=== PATIENT | male | born 2000 | race Two or more races ===

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

== ENCOUNTER 2024-12-11 15:24 | Emergency (ER) | payer OTHER ==
[~2024-12-11] VITALS: Ht 172.7 cm; Wt 53.0 kg
[2024-12-11 16:13] LABS: Basophils # (auto) 0.1 10 ^3/uL (0-0.2); Basophils % (auto) 1.3 % (0.0-2.0); Eosinophils # (auto) 0.2 10 ^3/uL (0-0.8); Eosinophils % (auto) 3.7 % (0.0-7.0); Hematocrit 46.9 % (41.0-53.0); Hemoglobin 16.1 g/dL (13.5-17.5); Lymphocytes # (auto) 1.1 10 ^3/uL (0.4-5.4); Lymphocytes % (auto) 24.9 % (10.0-50.0); Mean Corpuscular Hemoglobin 29.9 pg (28.0-32.0); Mean Corpuscular Hgb Conc. 34.3 g/dL (32.0-36.0); Mean Corpuscular Volume 87.2 fL (80.0-100.0); Monocytes # (auto) 0.4 10 ^3/uL (0-1.3); Monocytes % (auto) 8.9 % (0.0-12.0); Neutrophils # (auto) 2.7 10 ^3/uL (1.6-8.6); Neutrophils % (auto) 61.2 % (37.0-80.0); Nucleated Red Blood Cells % 0.1 %; Platelet Count (auto) 348 10^3/uL (140-450); Red Blood Cells 5.38 10^6/uL (4.5-5.90); Red Cell Distribution Width 12.8 % (11.8-14.3); White Blood Cell 4.4 10^3/uL (4.4-10.8)
[2024-12-11 16:31] LABS: Albumin 4.7 g/dL (3.2-4.8); Anion Gap 12 (5-15); Aspartate Aminotransferase 32 U/L (13-40); BUN/Creatinine Ratio 7.5 (10.0-20.0); Blood Urea Nitrogen 9 mg/dL (9-23); Carbon Dioxide 26 mmol/L (20-31); Creatine Kinase IFCC 73 U/L (46-171); Magnesium 2.2 mg/dL (1.6-2.6); Potassium 4.5 mmol/L (3.5-5.1); Total Protein 7.2 g/dL (5.7-8.2)
[2024-12-11 16:32] LABS: Bilirubin, Total 0.4 mg/dL (0.2-1.0)
[2024-12-11 16:33] LABS: Alanine Aminotransferase 80 U/L (7-40); Alkaline Phosphatase 137 U/L (46-116); Calcium 10.8 mg/dL (8.7-10.4); Chloride 96 mmol/L (98-107); Sodium 134 mmol/L (136-145)
[2024-12-11 16:36] LABS: Glucose 461 mg/dL (74-106); Lactic Acid w/Reflex 3.9 mmol/L (0.4-2.0)
[2024-12-11] MEDS: SODIUM CHLORIDE 0.9% 1,000 ML IV ONE ×3 (16:49→19:00)
[2024-12-11] MEDS: ONDANSETRON HCL 4 MG/2 ML VIAL IV ONE (16:49)
--- NOTE | 2024-12-11 17:03 | ED.PDOC ---
GI ASSESSMENT HPI Comments 24y F who presents to the ED for chief complaint of nausea and vomiting - pt states he has been having nausea, vomiting with associated generalized malaise since earlier this AM - pt states his vomit is yellow but otherwise denies any associated bleeding - pt states he was out in the sun all day yesterday and having generalized malaise since - pt denies any associated abdominal pain or associated symptoms - pt has history of DM and states he is complaint with his DM meds Patient took some insulin this morning. Past Medical history: DM Past Surgical history: denies Medications: denies Allergies: denies Social History: denies ETOH, denies tobacco use, denies drug use HPI: Poor Historian. SOTO: N/V TACHY WEAK, DM, HEAT EXHAUSTION TACHY REVIEW OF SYSTEMS: CONSTITUTIONAL: Denies acute: fever, diaphoresis, chills, HEAD: Denies acute: headache, photophobia Eyes: Denies acute: Double vision, vision loss, eye pain, eye discharge. EARS: Denies acute: tinnitus, hearing loss, ear discharge, ear pain, THROAT: Denies acute: sore throat, swelling, difficulty swallowing , pain with swallowing, change in voice. NECK: Denies acute: neck pain, neck swelling, stiff neck. HEART: Denies acute : chest pain, palpitations, LUNGS: Denies acute: SOB, wheezing, cough, hemoptysis ABDOMEN: Denies acute: abdominal pain, , diarrhea, melena , hematemesis, hematochezia SKIN: Denies acute: rash, redness, lesions, itchiness. EXTREMITIES: Denies acute: calf pain, numbness, tingling, weakness, denies pain in extremity. Denies acute: Low back pain. Neuro: Denies acute: focal neurological deficit, motor or sensory focal neurological deficit, tremors, seizure like activity, confusion, dizziness, change in mental status, loss of bowel or bladder function, cauda equina like symptoms. : Denies acute: dysuria, hematuria, flank pain, increase in urinary frequency. PSYCH: Denies acute: hallucination, suicidal ideation, homicidal ideation. PHYSICAL EXAM: General: ---mild-----acute distress, awake and alert. Head: normocephalic, atraumatic. Neck: supple, trachea is midline, no swelling. Throat: Normal phonation. Eyes:, no erythema, no purulent discharge, no proptosis, no icterus. Heart: regular tachycardia, no significant murmur appreciated. Lungs: no apparent respiratory distress, Able to speak in full sentences. No wheezing, no rhonchi, no crackles. No stridors Clear to auscultation bilaterally. Abdomen: non tender to palpation, non distended, soft, no guarding, no rebound, + bowel sounds. Neuro: Awake, Alert, oriented to name, self, situation, follows commands GCS=15. Speech is normal. Skin: no petechia, no purpura, no cyanosis, non-pale, not jaundice. Lower extremities: --no - Pitting edema no deformity, no focal swelling, no calf TTP. Makes eye contact. moves all four extremities. Face: no apparent facial droop. Ambulating in the ED independently. No nuchal rigidity, Kernig's sign, Brudzinski's sign, no meningeal signs. ED COURSE: Chief Complaint: Nausea/Vomiting Time Seen by MD: 17:02 Primary Care Provider: JUAN A Reviewed Notes: Medications, Allergies Allergies: Coded Allergies: NO KNOWN ALLERGIES (Unverified , 01/08/11) Home Meds Active Scripts Nitrofurantoin Monohydrate Mac (Macrobid) 100 Mg Cap, 100 MG PO BID for 7 Days, #14 CAP Prov:MEENAKSHI BERG DO 12/11/24 Reported Medications [Novilin] No Conflict Check 01/08/11 Insulin Glargine (Lantus) 100 Units/Ml Vial 01/08/11 Information Source: Patient Mode of Arrival: Ambulatory Past Medical History PAST MEDICAL HISTORY: DM Surgical History: Denies all surgeries Family History Family History: Family hx of DM Social History Smoker: Non-Smoker Alcohol: Heavy Drugs: Denies Drug Use Lives In: Home Was a procedure done? Was a procedure done?: No GI differential Dx Differential Diagnosis: Other (Includes but not limited to thyroid disease, encephalopathy, electrolyte abnormality, sepsis, infection, intracranial pathology, drug adverse effects, arrhythmia, kidney insufficiency, ACS, CVA, malignancy, anemia, DKA, hyperosmolar state,) X-Ray, Labs, Meds, VS Vital Signs Date Time Temp Pulse Resp B/P (MAP) Pulse Ox O2 Delivery O2 Flow Rate FiO2 12/11/24 21:30 90 18 98 Room Air 12/11/24 21:30 99.0 90 18 125/75 (92) 98 99.0 12/11/24 17:01 110 18 114/76 (89) 96 12/11/24 17:01 Room Air* 0 21 12/11/24 15:48 98.1 110 16 136/99 (111) 100 98.1 Lab Test 12/11/24 20:41 12/11/24 19:17 12/11/24 18:35 12/11/24 18:04 Range/Units Lactic Acid Level 1.9 2.7 *H 0.4-2.0 mmol/L POC Glucose 202 H 70-106 mg/dl Urine Color Light-yellow Yellow Urine Clarity Clear Clear Urine pH 6.0 5.0-9.0 Urine Specific [place] 1.044 H 1.001-1.035 Urine Protein Negative Negative Urine Ketones 1+ H Negative Urine Blood Negative Negative /uL Urine Nitrite Negative Negative Urine Bilirubin Negative Negative Urine Urobilinogen Normal Negative mg/dL Urine Leukocyte Esterase Trace Negative /uL Urine RBC <1 0 - 3 /hpf Urine Microscopic WBC 11 H 0-3 /HPF Urine Squamous Epithelial Cells None seen <5 /hpf Urine Bacteria None seen None Seen /hpf Urine Glucose 4+ H Normal mg/dL Urine Opiates Screen Neg NEGATIVE Urine Fentanyl Screen Neg NEGATIVE Urine Barbiturates Screen Neg NEGATIVE Urine Phencyclidine Screen Neg NEGATIVE Urine Amphetamines Screen Neg NEGATIVE Urine Benzodiazepines Screen Neg NEGATIVE Urine Cocaine Screen Neg NEGATIVE Urine Cannabinoids Screen Neg NEGATIVE Beta-Hydroxybutyric Acid 0.377 < 0.4 mmol/L Test 12/11/24 15:45 12/11/24 15:43 Range/Units White Blood Count 4.4 4.4-10.8 10^3/uL Red Blood Count 5.38 4.5-5.90 10^6/uL Hemoglobin 16.1 13.5-17.5 g/dL Hematocrit 46.9 41.0-53.0 % Mean Corpuscular Volume 87.2 80.0-100.0 fL Mean Corpuscular Hemoglobin 29.9 28.0-32.0 pg Mean Corpuscular Hemoglobin Concent 34.3 32.0-36.0 g/dL Red Cell Distribution Width 12.8 11.8-14.3 % Platelet Count 348 140-450 10^3/uL Mean Platelet Volume 8.2 6.9-10.8 fL Neutrophils (%) (Auto) 61.2 37.0-80.0 % Lymphocytes (%) (Auto) 24.9 10.0-50.0 % Monocytes (%) (Auto) 8.9 0.0-12.0 % Eosinophils (%) (Auto) 3.7 0.0-7.0 % Basophils (%) (Auto) 1.3 0.0-2.0 % Neutrophils # (Auto) 2.7 1.6-8.6 10 ^3/uL Lymphocytes # (Auto) 1.1 0.4-5.4 10 ^3/uL Monocytes # (Auto) 0.4 0-1.3 10 ^3/uL Eosinophils # (Auto) 0.2 0-0.8 10 ^3/uL Basophils # (Auto) 0.1 0-0.2 10 ^3/uL Nucleated Red Blood Cells 0.1 % Sodium Level 134 L 136-145 mmol/L Potassium Level 4.5 3.5-5.1 mmol/L Chloride Level 96 L 98-107 mmol/L Carbon Dioxide Level 26 20-31 mmol/L Anion Gap 12 5-15 Blood Urea Nitrogen 9 9-23 mg/dL Creatinine 1.20 0.700-1.30 mg/dL Glomerular Filtration Rate Calc 87 >90 mL/min BUN/Creatinine Ratio 7.5 L 10.0-20.0 Serum Glucose 461 *H 74-106 mg/dL Lactic Acid Level 3.9 *H 0.4-2.0 mmol/L Calcium Level 10.8 H 8.7-10.4 mg/dL Magnesium Level 2.2 1.6-2.6 mg/dL Total Bilirubin 0.4 0.2-1.0 mg/dL Aspartate Amino Transferase (AST) 32 13-40 U/L Alanine Aminotransferase (ALT) 80 H 7-40 U/L Alkaline Phosphatase 137 H 46-116 U/L Creatine Kinase 73 46-171 U/L Troponin I High Sensitivity < 3 L </=54 ng/L Total Protein 7.2 5.7-8.2 g/dL Albumin 4.7 3.2-4.8 g/dL Beta-Hydroxybutyric Acid 0.931 H < 0.4 mmol/L POC Glucose 461 *H 70-106 mg/dl Time of 1ST Reevaluation: 17:56 Reevaluation 1ST: Resolved Time of 2ND Reevaluation: 18:54 (As of now, urinalysis is still pending) Patient Education/Counseling: Diagnosis, Treatment Family Education/Counseling: No Family Present Comments Patient presented with the above HPI.-nausea and vomiting a diabetic patient-----workup was initiated. patient was found with the above mentioned diagnosis. the following medications were ordered: please refer to order lists of meds and tests obtained by myself Dr. Berg. Patient ED course and VS have been stabilized. Patient has been reassessed in the ED and remained in a stable condition. Pertinent incidental findings were discussed with the patient and/or family. Patient/family voices understanding and is agreeable with plan. Patient has been observed in the ED adequate length of time to insure improvement/stability. Escalation of care considered: Consideration of escalation to observation or admission Patient was given multiple fluid boluses. Patient was given antibiotics. The patient lactic acid elevation resolved. Patient was found with UTI. Patient was DISCHARGED home in a stable condition. All the reports of any imaging studies that were ordered by myself were reviewed by myself. Departure 1 Departure Time of Disposition: 17:56 Impression: Primary Impression: Nausea and vomiting Additional Impressions: Dehydration Hyperglycemia due to diabetes mellitus UTI (urinary tract infection) Disposition: 01 HOME / SELF CARE / HOMELESS Condition: Stable Additional Instructions: Additional instructions: You MUST follow-up with your primary care/family doctor in 1 to 2 days. If you are unable to see your primary care/family doctor, please return to our emergency room for re-assessment and re-evaluation in 1 to 2 days. Return to the emergency room here in our facility or to the nearest ER [facility] if your symptoms change or worsen. CONSULTATIONS: you MUST Follow-up for consultation as soon as possible with: Dr. vidales for better control of your diabetes. You MUST call the consultants office yourself to make an appointment. You may need to arrange that through your insurance and/or your primary/family doctor. If you are unable to see the remediation consultant in 1 to 2 days, you must return to our emergency room (or any other ER of your choice) for re-assessment and re- evaluation. Adequate fluid hydration. e-Prescriptions Nitrofurantoin Monohydrate Mac (Macrobid) 100 Mg Cap 100 MG PO BID for 7 Days, #14 CAP Prov: MEENAKSHI BERG DO 12/11/24 Discharged With: Self Critical Care Note Critical Care Time?: Yes (35 min-critical care time only) I personally scribed for MEENAKSHI BERG DO ([email or web address]) on 12/11/24 at 17:03. Electronically submitted by Cong Brady ([email or web address]). MEENAKSHI BERG DO Dec 11, 2024 17:03
[2024-12-11 19:54] LABS: Urine Bacteria None Seen /hpf (None Seen)
[2024-12-11 20:12] LABS: Urine Blood Negative /uL (Negative); Urine Clarity Clear (Clear); Urine Color Light-Yellow (Yellow); Urine Protein, UAD Negative (Negative); Urine Specific Gravity 1.044 (1.001-1.035); Urine Squamous Epithelial Cell None Seen /hpf (<5); Urine Urobilinogen Normal (Negative); Urine WBC 11 /HPF (0-3)
[2024-12-11 20:22] LABS: Amphetamine Screen, Urine Neg (NEGATIVE); Barbiturate Scree,Urine Neg (NEGATIVE); Benzodiazephine Screen, Urine Neg (NEGATIVE); Cannabinoid Screen, Urine Neg (NEGATIVE); Cocaine Screen, Urine Neg (NEGATIVE); Opiate Scree,Urine Neg (NEGATIVE); Phencyclidine Screen, Urine Neg (NEGATIVE)
[2024-12-11] MEDS ORDERED: NITR-87 PO (20:36)
[2024-12-11 21:30] VITALS: BP 125/75; PULSE 90; RESP 18; TEMP 99; O2SAT 98
== END 2024-12-11 21:32 | disposition home or self-care (01) ==
LOC: ER 15:39
DX: E11.65 Type 2 diabetes mellitus with hyperglycemia (principal); N39.0 Urinary tract infection, site not specified; E86.0 Dehydration; R11.2 Nausea with vomiting, unspecified; Z79.899 Other long term (current) drug therapy
CPT/HCPCS: 36415; 80053; 80307; 81001; 82010; 82550; 82947; 83605; 83735; 84484; 85025; 96361; 96374; 99283; J2405; J7030; 82962; 99291

== ENCOUNTER 2025-06-05 07:12 | Inpatient (IN) | payer OTHER ==
[~2025-06-05] VITALS: Ht 172.7 cm; Wt 57.0 kg
[~2025-06-05 07:12] MED LIST changes: +NITR-87 PO
--- NOTE | 2025-06-05 07:36 | ED.PDOC ---
GI ASSESSMENT HPI Comments This is a 24 year old male presenting to the ED with chief complaint of N/V. Patient reports that he has been experiencing nausea, vomiting, and epigastric abdominal pain since 11pm last night. Patient relays that he had went to dinner for his aunt last night prior to symptom onset. Patient denies any diarrhea, fever, chills, dizziness, or chest pain. Chief Complaint: Nausea/Vomiting Time Seen by MD: 07:35 Primary Care Provider: JUAN A Reviewed Notes: Nurses Notes, Medications, Allergies Allergies: Coded Allergies: NO KNOWN ALLERGIES (Unverified , 01/08/11) Home Meds Active Scripts Nitrofurantoin Monohydrate Mac (Macrobid) 100 Mg Cap, 100 MG PO BID for 7 Days, #14 CAP Prov:MEENAKSHI BERG DO 12/11/24 Reported Medications [Novilin] No Conflict Check 01/08/11 Insulin Glargine (Lantus) 100 Units/Ml Vial 01/08/11 Information Source: Patient Mode of Arrival: Ambulatory Timing: Hours Duration: Since onset Prehospital treatment: None Quality: Aching Vomitus: Watery Stool: Normal Severity: Moderate Recent: None Recent Hx of: None Pain Location: Epigastric Modifying Factors: Nothing Associated sign and symptoms: Nausea, Vomiting, Abdominal Pain Past Medical History PAST MEDICAL HISTORY: DM Surgical History: Denies all surgeries Family History Family History: Reviewed,noncontributory to illness, Family hx of DM Social History Smoker: Non-Smoker Alcohol: Heavy, Sober Drugs: Denies Drug Use Lives In: Home Constitutional: denies: chills, diaphoresis, fatigue, fever, malaise, sweats, weakness, others EENTM: denies: blurred vision, double vision, ear bleeding, ear discharge, ear drainage, ear pain, ear ringing, eye pain, eye redness, hearing loss, mouth pain , mouth swelling, nasal discharge, nose bleeding, nose congestion, nose pain, photophobia, tearing, throat pain, throat swelling, voice changes, others Respiratory: denies: cough, hemoptysis, orthopnea, SOB at rest, shortness of breath, SOB with excertion, stridor, wheezing, others Cardiovascular: denies: chest pain, dizzy spells, diaphoresis, Dyspnea on exertion, edema, irregular heart beat, left arm pain, lightheadedness, palpitations, PND, syncope, others Gastrointestinal: reports: abdominal pain, nausea, vomiting; denies: abdomen distended, blood streaked bowels, constipated, diarrhea, dysphagia, difficulty swallowing, hematemesis, melena, poor appetite, poor fluid intake, rectal bleeding, rectal pain, others Genitourinary: denies: burning, dysuria, flank pain, frequency, hematuria, incontinence, penile discharge, penile sore, pain, testicle pain, testicle swelling, urgency, others Neurological: denies: dizziness, fainting, headache, left sided numbness, left sided weakness, numbness, paresthesia, pre-existing deficit, right sided numbness, right sided weakness, seizure, speech problems, tingling, tremors, weakness, others Musculoskeletal: denies: back pain, gout, joint pain, joint swelling, muscle pain, muscle stiffness, neck pain, others Integumetry: denies: bruises, change in color, change in hair/nails, dryness, laceration, lesions, lumps, rash, wounds, others Allergic/Immunocompromised: denies: Difficulty Healing, Frequent Infections, Hives, Itching, others Hematologic/Lymphatic: denies: anemia, blood clots, easy bleeding, easy bruising, swollen glands, others Endocrine: denies: excessive hunger, excessive sweating, excessive thirst, excessive urination, flushing, intolerance to cold, intolerance to heat, unexplained weight gain, unexplained weight loss, others Psychiatric: denies: anxiety, bipolar disorder, depression, hopeless, panic disorder, schizophrenia, sleepless, suicidal, others Physical Exam General Appearance: Moderate Distress, Normal HEENT: Normal ENT Inspection, Pharynx Normal, TMs Normal Neck: Full Range of Motion, Non-Tender, Normal, Normal Inspection Respiratory: Chest Non-Tender, Lungs Clear, No Accessory Muscle Use, No Respiratory Distress, Normal Breath Sounds Cardiovascular: No Edema, No JVD, No Murmur, No Gallop, Normal Peripheral Pulses, Regular Rate/Rhythm Breast Exam: Deferred Gastrointestinal: No Organomegaly, Non Tender, No Pulsatile Mass, Normal Bowel Sounds, Soft Genitalia: Deferred Pelvic: Deferred Rectal: Deferred Extremities: No calf tenderness, Normal capillary refill, Normal inspection, Normal range of motion, Non-tender, No pedal edema Musculoskeletal : Apperance: Normal Neurologic: Alert, rent and miscellaneous remittance clerk II-XII nml as Tested, No Motor Deficits, Normal Affect, Normal Mood, No Sensory Deficits Cerebellar Function: Normal Reflexes: Normal Skin: Dry, Normal Color, Warm Peripheral Pulses: 3+ Radial (R), 3+ Radial (L) Lymphatic: No Adenopathy Was a procedure done? Was a procedure done?: No GI differential Dx Differential Diagnosis: Constipation, Diverticular disease, Esophagitis, Gastritis/PUD, Gastroenteritis, Electrolyte Imbalance, Food Poisoning, Bacterial, Viral X-Ray, Labs, Meds, VS Vital Signs Date Time Temp Pulse Resp B/P (MAP) Pulse Ox O2 Delivery O2 Flow Rate FiO2 06/05/25 07:14 97.3 121 18 112/77 98 97.3 Lab Test 06/05/25 07:43 Range/Units White Blood Count 6.0 4.4-10.8 10^3/uL Red Blood Count 5.24 4.5-5.90 10^6/uL Hemoglobin 15.6 13.5-17.5 g/dL Hematocrit 47.7 41.0-53.0 % Mean Corpuscular Volume 91.0 80.0-100.0 fL Mean Corpuscular Hemoglobin 29.8 28.0-32.0 pg Mean Corpuscular Hemoglobin Concent 32.7 32.0-36.0 g/dL Red Cell Distribution Width 12.8 11.8-14.3 % Platelet Count 443 140-450 10^3/uL Mean Platelet Volume 8.6 6.9-10.8 fL Neutrophils (%) (Auto) 65.3 37.0-80.0 % Lymphocytes (%) (Auto) 22.2 10.0-50.0 % Monocytes (%) (Auto) 7.2 0.0-12.0 % Eosinophils (%) (Auto) 4.3 0.0-7.0 % Basophils (%) (Auto) 1.0 0.0-2.0 % Neutrophils # (Auto) 3.9 1.6-8.6 10 ^3/uL Lymphocytes # (Auto) 1.3 0.4-5.4 10 ^3/uL Monocytes # (Auto) 0.4 0-1.3 10 ^3/uL Eosinophils # (Auto) 0.3 0-0.8 10 ^3/uL Basophils # (Auto) 0.1 0-0.2 10 ^3/uL Nucleated Red Blood Cells 0.1 % Sodium Level 129 L 136-145 mmol/L Potassium Level 4.4 3.5-5.1 mmol/L Chloride Level 91 L 98-107 mmol/L Carbon Dioxide Level 21 20-31 mmol/L Anion Gap 17 H 5-15 Blood Urea Nitrogen 11 9-23 mg/dL Creatinine 1.42 H 0.700-1.30 mg/dL Glomerular Filtration Rate Calc 71 >90 mL/min BUN/Creatinine Ratio 7.7 L 10.0-20.0 Serum Glucose 663 *H 74-106 mg/dL Calcium Level 9.7 8.7-10.4 mg/dL Patient alert. Came in because of nausea vomiting. Vitals stable. Answering questions. Abdomen is soft nontender. Ambulating. WBC within normal limits. Hemoglobin within normal limits. No leg swelling. No shortness a breath. Establish intravenous access. Was given fluids. Was given Zofran. Blood sugar elevated. Started insulin drip. Explained to the patient. Time of 1ST Reevaluation: 08:26 Reevaluation 1ST: Unchanged Patient Education/Counseling: Diagnosis, Treatment Family Education/Counseling: No Family Present SEPSIS Sepsis Screen Date sepsis recognized/suspect: Jun 05, 2025 Time Sepsis recognized/suspect: 718 Recent Procedure: No On Antibiotic Therapy: No Respiratory Rate >20: No Heart Rate >90: Yes Temp<36 C (96.8 F) or >38.3 C: No SBP <90 or MAP <65 mmHG: No New Acute Mental Status Change: No Is the patient on CPAP, BIPAP,: No Vital Signs Date Time Temp Pulse Resp B/P (MAP) Pulse Ox O2 Delivery O2 Flow Rate FiO2 06/05/25 07:14 97.3 121 18 112/77 98 97.3 Laboratory Tests Test 06/05/25 07:43 White Blood Count 6.0 10^3/uL (4.4-10.8) Departure 1 Departure Time of Disposition: 08:28 Impression: Primary Impression: Uncontrolled diabetes mellitus Qualified Codes: E13.65 - Other specified diabetes mellitus with hyperglycemia Additional Impressions: Gastroenteritis Dehydration Disposition: ADMITTED INPATIENT Admit to: Med Surg Condition: Guarded Critical Care Note Critical Care Time?: No Stability Stability form required: No Heart Score Heart Score: Heart Score Response (Comments) Value History N/A 0 EKG N/A 0 Age N/A 0 Risk Factors N/A 0 Troponin N/A 0 Total 0 I personally scribed for SOWMYA GAMING MD ([email or web address]) on 06/05/25 at 07:36. Electronically submitted by Mayito Park ([email or web address]). SOWMYA GAMING MD Jun 05, 2025 07:36
[2025-06-05 08:11] LABS: Hematocrit 47.7 % (41.0-53.0); Hemoglobin 15.6 g/dL (13.5-17.5); Mean Corpuscular Hemoglobin 29.8 pg (28.0-32.0); Mean Corpuscular Volume 91.0 fL (80.0-100.0); Nucleated Red Blood Cells % 0.1 %
[2025-06-05 08:14] LABS: Potassium 4.4 mmol/L (3.5-5.1)
[2025-06-05 08:15] LABS: Anion Gap 17 (5-15); Carbon Dioxide 21 mmol/L (20-31)
[2025-06-05 08:16] LABS: Calcium 9.7 mg/dL (8.7-10.4)
[2025-06-05 08:20] LABS: BUN/Creatinine Ratio 7.7 (10.0-20.0); Blood Urea Nitrogen 11 mg/dL (9-23)
[2025-06-05 08:41] LABS: Chloride 91 mmol/L (98-107); Sodium 129 mmol/L (136-145)
[2025-06-05 08:43] LABS: Glucose 663 mg/dL (74-106)
[2025-06-05] MEDS: ACCU-CHEK COMFORT CURVE STRIP VI SCH ×2 (09:00→15:47)
[2025-06-05] MEDS ORDERED: DEXTROSE (50%) 50ML SYRG IV PRN ×2 (09:00→13:00)
[2025-06-05] MEDS ORDERED: INSULIN DRIP 100 UNIT/100ML 100 ML IV SCH (09:00)
[2025-06-05] MEDS: ONDANSETRON HCL 4 MG/2 ML VIAL IV ONE (09:16)
[2025-06-05] MEDS: SODIUM CHLORIDE 0.9% 1,000 ML IV ONE (09:16)
[2025-06-05 09:20] VITALS: PULSE 86; RESP 12; O2SAT 99
[2025-06-05] MEDS: INSULIN LANTUS (GLARGINE) 1 /0.01ml (100units/ml) SC ONE (09:35)
[2025-06-05] MEDS ORDERED: ONDANSETRON HCL 4 MG/2 ML VIAL IV PRN (10:00)
[2025-06-05] MEDS ORDERED: ACETAMINOPHEN 325 MG TAB PO PRN (10:00)
[2025-06-05] MEDS ORDERED: DOCUSATE SOD 100 MG CAP PO PRN (10:00)
[2025-06-05] MEDS ORDERED: HYDROcodone-ACET 5/325MG TAB PO PRN (10:00)
--- NOTE | 2025-06-05 10:19 | DVHHP2 ---
History of Present Illness Reason for Visit: Diabetes mellitus with ketoacidosis History of Present Illness The patient is a 24-year-old male with past medical history of diabetes mellitus who presented to [facility] ED with complaint of nausea and vomiting. Patient reports that he has been experiencing intractable nausea, vomiting, associated epigastric abdominal pain, generalized weakness, getting worse that prompted this visit. Patient was seen and evaluated in the ED, laboratory data shows WBC 6.0, platelets 443, sodium 123, potassium 4.4, BUN 11, creatinine 1.42, GFR 71, glucose 663, anion gap 17, calcium 9.7, blood pressure 103/73, heart rate 86, temperature 99.2 F, O2 saturation 99% on room air. Please see medication orders section in the computer. On my assessment, patient denied chest pain, no headache, dizziness, diaphoresis, shortness of breaths, no diarrhea, nausea, vomiting, fever, no chills. Patient was admitted for further evaluation and medical management. Past Medical History DM Past Surgical History Denies all surgeries Family History Reviewed, noncontributory to the management of this case. Past Social History The patient lives at home, denies smoking, drinks alcohol heavily, sober, denies illicit drugs abuse. Review of Systems Constitutional: Yes: Weakness; No: Fever, Chills, Sweats, Malaise, Other Eyes: No: Pain, Vision change, Conjunctivae inflammation, Eyelid inflammation, Other, Redness ENT: No: Ear pain, Ear discharge, Nose pain, Nose discharge, Nose congestion, Mouth pain, Mouth swelling, Throat pain, Throat swelling, Other Respiratory: No: Cough, Dry, Shortness of breath, SOB with excertion, Wheezing, Hemoptysis, Pleuritic Pain, Sputum, Wheezing, Other Cardiovascular: No: Chest Pain, Palpitations, Orthopnea, Paroxysmal Noc. Dyspnea, Edema, Lt Headedness, Other Gastrointestinal: No: Nausea, Vomiting, Abdominal Pain, Diarrhea, Constipation, Melena, Hematochezia, Other Genitourinary: No Dysuria, No Frequency, No Incontinence, No Hematuria, No Retention, No Other Musculoskeletal: No: other, neck pain, shoulder pain, arm pain, back pain, hand pain, leg pain, foot pain Skin: No: Rash, Lesions, Jaundice, Bruising, Other Neurological: No: Weakness, Numbness, Incoordination, Change in speech, Confusion, Seizures, Other Allergies: Coded Allergies: NO KNOWN ALLERGIES (Unverified , 01/08/11) Medications Current Medications Medications Dose Ordered Sig/Leigh Route Start Time Stop Time Status Last Admin Dose Admin Insulin Human (Reg)/Sodium Chloride 100 ml @ 0.5 mls/hr Q24H IV 06/05/25 09:00 Diagnostic Test (Pha) 1 strip Q90MIN 06/05/25 09:00 Dextrose 50 ml PRN PRN IV 06/05/25 09:00 Insulin Glargine 15 units DAILY SC 06/06/25 10:00 Sodium Chloride 1,000 ml @ 120 mls/hr Q8H20M IV 06/05/25 10:00 Acetaminophen/ Hydrocodone Bitart 1 tab Q4HP PRN PO 06/05/25 10:00 Ondansetron HCl 4 mg Q4HP PRN IV 06/05/25 10:00 Docusate Sodium 100 mg BIDPRN PRN PO 06/05/25 10:00 Acetaminophen 650 mg Q6HP PRN PO 06/05/25 10:00 Exam Vital Signs Vital Signs Date Time Temp Pulse Resp B/P (MAP) Pulse Ox O2 Delivery O2 Flow Rate FiO2 06/05/25 10:13 85 12 113/83 (93) 99 06/05/25 09:20 Room Air* 0 21 06/05/25 09:05 99.2 99.2 General Appearance: Alert, Oriented X3, Cooperative, No acute distress HEENT: Atraumatic, PERRLA, EOMI, Mucous membr. moist/pink Respiratory: Normal air movement Cardiovascular: Regular rate, Normal S1, Normal S2, No murmurs Abdominal: Normal bowel sounds, Soft, No tenderness, No hepatospenomegaly, No masses Extremities: No clubbing, No cyanosis, No edema, Normal pulses, No tenderness/swelling Skin: No rashes, No significant lesion Neuro: Normal speech, Normal tone, Sensation intact, Cranial nerves 3-12 NL, Reflexes 2+, Other (Generalized weakness) Psych/Mental Status: Mental status NL, Mood NL Labs/Xrays Labs Test 06/05/25 09:07 06/05/25 07:43 Range/Units POC Glucose 500 *H 70-106 mg/dl White Blood Count 6.0 4.4-10.8 10^3/uL Red Blood Count 5.24 4.5-5.90 10^6/uL Hemoglobin 15.6 13.5-17.5 g/dL Hematocrit 47.7 41.0-53.0 % Mean Corpuscular Volume 91.0 80.0-100.0 fL Mean Corpuscular Hemoglobin 29.8 28.0-32.0 pg Mean Corpuscular Hemoglobin Concent 32.7 32.0-36.0 g/dL Red Cell Distribution Width 12.8 11.8-14.3 % Platelet Count 443 140-450 10^3/uL Mean Platelet Volume 8.6 6.9-10.8 fL Neutrophils (%) (Auto) 65.3 37.0-80.0 % Lymphocytes (%) (Auto) 22.2 10.0-50.0 % Monocytes (%) (Auto) 7.2 0.0-12.0 % Eosinophils (%) (Auto) 4.3 0.0-7.0 % Basophils (%) (Auto) 1.0 0.0-2.0 % Neutrophils # (Auto) 3.9 1.6-8.6 10 ^3/uL Lymphocytes # (Auto) 1.3 0.4-5.4 10 ^3/uL Monocytes # (Auto) 0.4 0-1.3 10 ^3/uL Eosinophils # (Auto) 0.3 0-0.8 10 ^3/uL Basophils # (Auto) 0.1 0-0.2 10 ^3/uL Nucleated Red Blood Cells 0.1 % Sodium Level 129 L 136-145 mmol/L Potassium Level 4.4 3.5-5.1 mmol/L Chloride Level 91 L 98-107 mmol/L Carbon Dioxide Level 21 20-31 mmol/L Anion Gap 17 H 5-15 Blood Urea Nitrogen 11 9-23 mg/dL Creatinine 1.42 H 0.700-1.30 mg/dL Glomerular Filtration Rate Calc 71 >90 mL/min BUN/Creatinine Ratio 7.7 L 10.0-20.0 Serum Glucose 663 *H 74-106 mg/dL Calcium Level 9.7 8.7-10.4 mg/dL SEPSIS Sepsis Screen Date sepsis recognized/suspect: Jun 05, 2025 Time Sepsis recognized/suspect: 943 Recent Procedure: No On Antibiotic Therapy: No Respiratory Rate >20: No Heart Rate >90: No Temp<36 C (96.8 F) or >38.3 C: No SBP <90 or MAP <65 mmHG: No New Acute Mental Status Change: No Is the patient on CPAP, BIPAP,: No Physician Orders Insulin Drip 100 Unit/100ml (Myxredlin 1 (06/05/25 09:00) Glucose Blood (Accu-Chek Comfort Curve T (06/05/25 09:00) D/C All Diabetic Medications (06/05/25 08:50) Insulin Drip Protocol (06/05/25 08:50) Dextrose 50% Syringe (06/05/25 09:00) Insulin Lantus (Glargine) (Lantus) (06/06/25 10:00) Consistent Carb(Ccho)Diabetes (06/05/25 Lunch) Allergies (06/05/25 09:54) Code Status (06/05/25 09:54) Sodium Chloride 0.9% (06/05/25 10:00) Oxygen Per Hour (06/05/25 09:54) Hydrocodone-Acet 5/325mg Tab (Campus 5/32 (06/05/25 10:00) Ondansetron Hcl (Zofran) (06/05/25 10:00) Docusate Sodium Capsule (Colace Capsule) (06/05/25 10:00) Fall Risk Precautions In Place QSHIFT (06/05/25 09:54) Complete Blood Count (06/06/25 04:00) Comprehensive Metabolic Panel (06/06/25 04:00) Condition: Serious (06/05/25 09:54) Acetaminophen Tablet (Tylenol Tablet) (06/05/25 10:00) Maintain Bed Rest (06/05/25 09:54) Sequential Compression Device (06/05/25 ) Acetone, Urine (06/05/25 09:54) Admit (06/05/25 10:18) Nitroglycerin Sublingual (Ntrostat Subli (06/05/25 10:30) Morphine Sulfate Injection (06/05/25 10:30) Stat Ekg For Chest Pain (06/05/25 10:18) Notify Md Of Changes From Base (06/05/25 10:18) Sliver Lap Tender For 24 Hours (06/05/25 10:18) Emergency Dysrhythmia Protocol (06/05/25 10:18) Rhythm Strips Once Every Shift (06/05/25 10:18) Oxygen By Nasal Cannula (06/05/25 10:18) Vital Signs Date Time Temp Pulse Resp B/P (MAP) Pulse Ox O2 Delivery O2 Flow Rate FiO2 06/05/25 10:13 85 12 113/83 (93) 99 06/05/25 09:20 86 12 99 Room Air* 0 21 06/05/25 09:05 99.2 86 12 103/73 (83) 99 99.2 06/05/25 07:14 97.3 121 18 112/77 98 97.3 Laboratory Tests Test 06/05/25 07:43 White Blood Count 6.0 10^3/uL (4.4-10.8) Medications Medications Dose Ordered Sig/Leigh Route Start Time Stop Time Status Last Admin Dose Admin Insulin Glargine 15 units ONCE ONCE SC 06/05/25 09:00 06/05/25 09:01 DC 06/05/25 09:35 15 UNITS Ondansetron HCl 4 mg ONCE ONCE IV 06/05/25 07:45 06/05/25 07:46 DC 06/05/25 09:16 4 MG Sodium Chloride 1,000 ml @ 1,000 mls/hr Q1H ONCE IV 06/05/25 07:45 06/05/25 08:44 DC 06/05/25 09:16 1,000 MLS/HR Assessment/Plan Assessment/Plan Uncontrolled diabetes mellitus Gastroenteritis Dehydration Diabetes mellitus with ketoacidosis Hyperglycemia due to diabetes mellitus Other specified diabetes mellitus with hyperglycemia Plan 1. Admit to intensive care unit 2. Breathing treatment 3. Pain control management 4. Management of fluids and electrolytes 5. Consultation for hospitalist 6. Diagnostic tests chest x-ray 7. DVT prophylaxis on SCDs 8. Repeat labs CBC, CMP in a.m. 9. Continue with current medical management 10. Treatment plan discussed with patient and RN. Patient verbalized understanding. Plan discussed with: Patient, Other (RN) My Orders Orders - BILL KHAN DNP Procedure Category Date Status Time Consistent DIET 06/05/25 Transmitted Carb(Ccho)Diabetes Lunch Allergies ALIYA 06/05/25 In Process 09:54 Code Status CODE 06/05/25 Transmitted 09:54 Sodium Chloride 0.9% PHA 06/05/25 In Process 10:00 Oxygen Per Hour RT 06/05/25 Transmitted 09:54 Hydrocodone-Acet PHA 06/05/25 In Process 5/325mg Tab (Campus 10:00 Ondansetron Hcl PHA 06/05/25 In Process (Zofran) 10:00 Docusate Sodium PHA 06/05/25 In Process Capsule (Colace 10:00 Fall Risk Precautions ALIYA 06/05/[address] 09:54 Complete Blood Count LAB 06/06/25 Verified 04:00 Comprehensive LAB 06/06/25 Verified Metabolic Panel 04:00 Condition: Serious ALIYA 06/05/25 In Process 09:54 Acetaminophen Tablet PHA 06/05/25 In Process (Tylenol Tablet) 10:00 Maintain Bed Rest ALIYA 06/05/25 In Process 09:54 Sequential ALIYA 06/05/25 In Process Compression Device Acetone, Urine LAB 06/05/25 Logged 09:54 Admit ADMIT 06/05/25 Verified 10:18 Nitroglycerin PHA 06/05/25 Verified Sublingual (Ntrostat 10:30 Morphine Sulfate PHA 06/05/25 Verified Injection 10:30 Stat Ekg For Chest [facility] 06/05/25 Verified Pain 10:18 Notify Md Of Changes [facility] 06/05/25 Verified From Base 10:18 Sliver Lap Tender For [facility] 06/05/25 Verified 24 Hours 10:18 Emergency Dysrhythmia [facility] 06/05/25 Verified Protocol 10:18 Rhythm Strips Once [facility] 06/05/25 Verified Every Shift 10:18 Oxygen By Nasal RT 06/05/25 Verified Cannula 10:18 Problem List: (1) Uncontrolled diabetes mellitus (2) Gastroenteritis (3) Dehydration (4) Diabetes mellitus with ketoacidosis (5) Hyperglycemia due to diabetes mellitus (6) Other specified diabetes mellitus with hyperglycemia Date of Service: Jun 05, 2025 Billing Provider: BILL KHAN DNP Common Visit Codes: [id number] INP/OBS CARE (HIGH) BILL KHAN DNP Jun 05, 2025 10:19
[2025-06-05] MEDS ORDERED: MORPHINE SULFATE INJ 2 MG/ml SYRG IV PRN (10:30)
[2025-06-05] MEDS ORDERED: NITROGLYCERIN 0.4 MG SL TAB SL PRN (10:30)
[2025-06-05] MEDS: SODIUM CHLORIDE 0.9% 1,000 ML IV SCH (10:47)
[2025-06-05 12:11] LABS: Chloride 101 mmol/L (98-107); Potassium 4.5 mmol/L (3.5-5.1)
[2025-06-05 12:12] LABS: Anion Gap 13 (5-15); Calcium 8.8 mg/dL (8.7-10.4); Carbon Dioxide 21 mmol/L (20-31)
[2025-06-05 12:17] LABS: BUN/Creatinine Ratio 8.5 (10.0-20.0)
[2025-06-05 12:20] LABS: Blood Urea Nitrogen 8 mg/dL (9-23); Glucose 357 mg/dL (74-106); Sodium 135 mmol/L (136-145)
--- NOTE | 2025-06-05 13:11 | DVH ---
EXAM: XY CHEST PORTABLE Indication: Dizziness Technique: Single frontal view of the chest was obtained Comparison: None FINDINGS: Lines and Tubes: None Lungs: No focal consolidation. Pleura: No effusion. No pneumothorax. Cardiomediastinal contours: Unremarkable Bones: No acute osseous abnormality. IMPRESSION: No acute cardiopulmonary disease.
[2025-06-05 15:27] VITALS: RESP 12
[2025-06-05] MEDS: InsuLIN REG 1unit/0.01ml Soln (100units/ml) SC SCH (15:46)
[2025-06-05] MEDS ORDERED: INSU1INJ19 SC (15:49)
[2025-06-05] MEDS ORDERED: INSUINJ37 SC (15:49)
[2025-06-05] MEDS ORDERED: INSU100I51 (15:49)
[2025-06-05 16:31] VITALS: BP 111/76; PULSE 86; RESP 18; TEMP 97.7; O2SAT 99
[2025-06-05 20:00] VITALS: PULSE 72; PULSE 73; PULSE 92; RESP 16
[2025-06-05 21:00] VITALS: BP 107/70; PULSE 96; RESP 15; TEMP 98.2; O2SAT 97
[2025-06-06] VITALS (8 sets, daily range): BP systolic 100–122; BP diastolic 62–96; PULSE 70–88; RESP 12–20; TEMP 97.8–98.7; O2SAT 97–99
[2025-06-06 03:23] LABS: Hematocrit 38.8 % (41.0-53.0); Hemoglobin 13.3 g/dL (13.5-17.5); Mean Corpuscular Hemoglobin 29.8 pg (28.0-32.0); Mean Corpuscular Volume 87.0 fL (80.0-100.0); Nucleated Red Blood Cells % 0.1 %
[2025-06-06 03:37] LABS: Albumin 3.3 g/dL (3.2-4.8); Alkaline Phosphatase 112 U/L (46-116); Anion Gap 11 (5-15); BUN/Creatinine Ratio 11.4 (10.0-20.0); Carbon Dioxide 26 mmol/L (20-31); Chloride 106 mmol/L (98-107); Glucose 88 mg/dL (74-106); Sodium 143 mmol/L (136-145)
[2025-06-06 03:38] LABS: Bilirubin, Total 0.4 mg/dL (0.2-1.0)
[2025-06-06 04:20] LABS: Alanine Aminotransferase 86 U/L (7-40); Blood Urea Nitrogen 8 mg/dL (9-23); Calcium 8.3 mg/dL (8.7-10.4); Potassium 3.2 mmol/L (3.5-5.1); Total Protein 5.6 g/dL (5.7-8.2)
[2025-06-06] MEDS ORDERED: INSULIN LANTUS (GLARGINE) 1 /0.01ml (100units/ml) SC SCH (10:00)
--- NOTE | 2025-06-06 17:43 | DVHPN2 ---
Reviewed: H&P Changes from previous H/P or p: No Changes General: Per HPI Eyes: No Pain, No Vision change, No Conjunctivae inflammation, No Eyelid inflammation, No Other, No Redness ENT: No Ear pain, No Ear discharge, No Nose pain, No Nose discharge, No Nose congestion, No Mouth pain, No Mouth swelling, No Throat pain, No Throat swelling, No Other Cardiovascular: No Chest Pain, No Palpitations, No Orthopnea, No Paroxysmal Noc. Dyspnea, No Edema, No Lt Headedness, No Other Respiratory: No Cough, No Dry, No Shortness of breath, No SOB with excertion, No Wheezing, No Hemoptysis, No Pleuritic Pain, No Sputum, No Other Gastrointestinal: No Nausea, No Vomiting, No Abdominal Pain, No Diarrhea, No Constipation, No Melena, No Hematochezia, No Other Genitourinary: No Dysuria, No Frequency, No Incontinence, No Hematuria, No Retention, No Other Musculoskeletal: No other, No neck pain, No shoulder pain, No arm pain, No back pain, No hand pain, No leg pain, No foot pain Skin: No Rash, No Lesions, No Jaundice, No Bruising, No Other Objective Vitals Vital Signs Date Time Temp Pulse Resp B/P (MAP) Pulse Ox O2 Delivery O2 Flow Rate FiO2 06/06/25 17:00 98.7 74 20 122/96 (105) 97 98.7 06/06/25 08:00 Room Air* 0 21 Intake/Output Intake and Output 06/06/25 07:00 Intake Total 2670 ml Output Total 400 ml Balance 2270 ml Intake Oral 670 ml IV Total 2000 ml Output Urine Total 400 ml # Bowel Movements 1 Exam General Appearance: Alert, Oriented X3, Cooperative, No acute distress HEENT: Atraumatic, PERRLA, EOMI, Mucous membr. moist/pink Respiratory: Normal air movement Cardiovascular: Regular rate, Normal S1, Normal S2, No murmurs Abdominal: Normal bowel sounds, Soft, No tenderness, No hepatospenomegaly, No masses Extremities: No clubbing, No cyanosis, No edema, Normal pulses, No tenderness/swelling Skin: No rashes, No significant lesion Neuro: Normal speech, Normal tone, Sensation intact, Cranial nerves 3-12 NL, Reflexes 2+, Other (Generalized weakness) Psych/Mental Status: Mental status NL, Mood NL Medications Current Medications Medications Dose Ordered Sig/Leigh Route Start Time Stop Time Status Last Admin Dose Admin Sodium Chloride 1,000 ml @ 120 mls/hr Q8H20M IV 06/05/25 10:00 06/06/25 11:42 120 MLS/HR Acetaminophen/ Hydrocodone Bitart 1 tab Q4HP PRN PO 06/05/25 10:00 Ondansetron HCl 4 mg Q4HP PRN IV 06/05/25 10:00 Docusate Sodium 100 mg BIDPRN PRN PO 06/05/25 10:00 Acetaminophen 650 mg Q6HP PRN PO 06/05/25 10:00 Nitroglycerin 0.4 mg Q5MINP PRN SL 06/05/25 10:30 Morphine Sulfate 2 mg Q30M PRN IV 06/05/25 10:30 Dextrose 50 ml UD PRN IV 06/05/25 13:00 Diagnostic Test (Pha) 1 strip ACHS 06/06/25 22:00 Insulin Human Regular HS SC 06/06/25 22:00 Insulin Human Regular AC SC 06/07/25 07:00 Laboratory Results Laboratory Tests 06/06/25 02:17 Chemistry Test 06/06/25 02:17 Albumin 3.3 g/dL (3.2-4.8) Calcium Level 8.3 mg/dL (8.7-10.4) L Total Protein 5.6 g/dL (5.7-8.2) L LFT Test 06/06/25 02:17 Alanine Aminotransferase (ALT) 86 U/L (7-40) H Alkaline Phosphatase 112 U/L (46-116) Aspartate Amino Transferase (AST) 80 U/L (13-40) H Total Bilirubin 0.4 mg/dL (0.2-1.0) Urinalysis Test 06/05/25 13:59 Urine Ketones 2+ (Negative) H Labs and/or images reviewed: Labs reviewed by me, Image(s) reviewed by me Assessment/Plan Assessment/Plan 24-year-old male with past medical history of diabetes mellitus who presented to [facility] ED with complaint of nausea and vomiting. Patient reports that he has been experiencing intractable nausea, vomiting, associated epigastric abdominal pain, generalized weakness, getting worse that prompted this visit. 06/06: Patient presenting with hyperglycemia, early DKA with ketosis in urine. Lactic acidosis not measured, initially had anion gap metabolic acidosis which is resolving with fluids and treatment with insulin. Diagnosis: diabetes mellitus, type 1, insulin dependent, uncontrolled with hyperglycemia, in early DKA Precipitous drop hematocrit, likely dilutional Hypokalemia Transaminitis, likely due to volume depletion Anion gap metabolic acidosis Gastroenteritis possible, infectious etiology likely Dehydration with intravascular volume depletion Plan: Insulin moderate a.c. HS IV fluids normal saline 60 cc/hour Continue other home medications Diet low carb diabetic Med surge Full code Plan discussed with: Patient My Orders Orders - UZMA PABLO MD Procedure Category Date Status Time Glucose Blood PHA 06/06/25 In Process (Accu-Chek Comfort 22:00 Insulin R (Human) PHA 06/06/25 In Process (Insulin R) 22:00 Insulin R (Human) PHA 06/07/25 In Process (Insulin R) 07:00 Date of Service: Jun 06, 2025 Billing Provider: UZMA PABLO MD Common Visit Codes: [id number] INP/OBS CARE(HIGH) UZMA PABLO MD Jun 06, 2025 17:43
[2025-06-06] MEDS: POTASSIUM CHL 20 Meq TABLET PO ONE (19:20)
[2025-06-06] MEDS: ACCU-CHEK COMFORT CURVE STRIP VI SCH (21:33)
[2025-06-06] MEDS: InsuLIN REG 1unit/0.01ml Soln (100units/ml) SC SCH (21:33)
[2025-06-07] MEDS: InsuLIN REG 1unit/0.01ml Soln (100units/ml) SC SCH (06:51)
[2025-06-07 07:09] LABS: Chloride 107 mmol/L (98-107); Potassium 4.4 mmol/L (3.5-5.1); Sodium 139 mmol/L (136-145)
[2025-06-07 07:10] LABS: Anion Gap 7 (5-15); Carbon Dioxide 25 mmol/L (20-31)
[2025-06-07 07:13] LABS: Calcium 8.5 mg/dL (8.7-10.4)
[2025-06-07 07:16] LABS: BUN/Creatinine Ratio 8.7 (10.0-20.0)
[2025-06-07 07:24] LABS: Blood Urea Nitrogen 6 mg/dL (9-23); Glucose 329 mg/dL (74-106)
[2025-06-07 08:00] VITALS: PULSE 80; PULSE 83; RESP 20; O2SAT 99
[2025-06-07 09:00] VITALS: BP 124/94; PULSE 77; RESP 16; TEMP 97.6; O2SAT 99
[2025-06-07 13:00] VITALS: BP 139/95; PULSE 84; RESP 16; TEMP 98.1; O2SAT 98
[2025-06-07 17:00] VITALS: BP 133/99; PULSE 73; RESP 18; TEMP 97.8; O2SAT 100
--- NOTE | 2025-06-07 17:13 | DVHDS2 ---
Discharge Summary Date of Admission Jun 05, 2025 at 10:18 Date of Discharge: Jun 07, 2025 Labs/Diagnostic Data: Laboratory Results Test 06/07/25 12:09 06/07/25 05:24 06/06/25 02:17 06/05/25 13:59 POC Glucose 133 mg/dl (70-106) Sodium Level 139 mmol/L (136-145) Potassium Level 4.4 mmol/L (3.5-5.1) Chloride Level 107 mmol/L (98-107) Carbon Dioxide Level 25 mmol/L (20-31) Anion Gap 7 (5-15) Blood Urea Nitrogen 6 mg/dL (9-23) Creatinine 0.69 mg/dL (0.700-1.30) Glomerular Filtration Rate Calc 133 mL/min (>90) BUN/Creatinine Ratio 8.7 (10.0-20.0) Serum Glucose 329 mg/dL (74-106) Calcium Level 8.5 mg/dL (8.7-10.4) White Blood Count 5.8 10^3/uL (4.4-10.8) Red Blood Count 4.45 10^6/uL (4.5-5.90) Hemoglobin 13.3 g/dL (13.5-17.5) Hematocrit 38.8 % (41.0-53.0) Mean Corpuscular Volume 87.0 fL (80.0-100.0) Mean Corpuscular Hemoglobin 29.8 pg (28.0-32.0) Mean Corpuscular Hemoglobin Concent 34.2 g/dL (32.0-36.0) Red Cell Distribution Width 12.8 % (11.8-14.3) Platelet Count 341 10^3/uL (140-450) Mean Platelet Volume 8.1 fL (6.9-10.8) Neutrophils (%) (Auto) 48.6 % (37.0-80.0) Lymphocytes (%) (Auto) 34.9 % (10.0-50.0) Monocytes (%) (Auto) 8.6 % (0.0-12.0) Eosinophils (%) (Auto) 6.7 % (0.0-7.0) Basophils (%) (Auto) 1.2 % (0.0-2.0) Neutrophils # (Auto) 2.8 10 ^3/uL (1.6-8.6) Lymphocytes # (Auto) 2.0 10 ^3/uL (0.4-5.4) Monocytes # (Auto) 0.5 10 ^3/uL (0-1.3) Eosinophils # (Auto) 0.4 10 ^3/uL (0-0.8) Basophils # (Auto) 0.1 10 ^3/uL (0-0.2) Nucleated Red Blood Cells 0.1 % Total Bilirubin 0.4 mg/dL (0.2-1.0) Aspartate Amino Transferase (AST) 80 U/L (13-40) Alanine Aminotransferase (ALT) 86 U/L (7-40) Alkaline Phosphatase 112 U/L (46-116) Total Protein 5.6 g/dL (5.7-8.2) Albumin 3.3 g/dL (3.2-4.8) Urine Ketones 2+ (Negative) Other Laboratory Tests 06/07/25 05:24 06/06/25 02:17 Brief Hx & Hospital Course: Uncontrolled diabetes mellitus Gastroenteritis Dehydration Diabetes mellitus with ketoacidosis Hyperglycemia due to diabetes mellitus Other specified diabetes mellitus with hyperglycemia discharged to home pt has Lantus at home Condition at Discharge: Fair Final Diagnosis/Problems List see above Discharge Disposition: Home Discharge Instruct/Medications Diet: Cardiac 2g Na,low cholest Activity: No Restrictions, As Tolerated Miscellaneous Medications Insulin Aspart (Insulin Aspart Flexpen), (Reported) Insulin Glargine (Basaglar Kwikpen), SC, (Reported) Insulin Glargine (Lantus Solostar), SC, (Reported) Discharge Statement: "Patient was advised to return to the ER or call 911 if any headaches, dizziness, shortness of breath, chest pain, abdominal pain, bleeding, fevers, or worsening of medical condition. Patient was counseled about treatment plan, medications, possible side effects, patientverbalized understanding. All questions were answered to the best of my ability. This discharge took greater then 30 minutes in planning, reviewing documentation, counseling the patient, and discussing with other team members." ASSESSMENT ASSESSMENT Assessment Date of Service: Jun 07, 2025 Billing Provider: GEMMA HAWK DO Common Visit Codes: [id number] DISCH DAY >30min GEMMA HAWK DO Jun 07, 2025 17:13
[2025-06-07 17:44] VITALS: BP 133/99; PULSE 73; RESP 20; TEMP 97.8; O2SAT 100
== END 2025-06-07 18:45 | disposition home or self-care (01) | DRG 420 ==
LOC: ER 07:12 → OVERFLOW 10:18 → TELE-WESTW 06-06 18:09
PROVIDERS: ADMIT Student in an Organized Health Care Education/Training Program; ATTEND Student in an Organized Health Care Education/Training Program
DX: E10.10 Type 1 diabetes mellitus with ketoacidosis without coma (principal); N17.0 Acute kidney failure with tubular necrosis; A08.4 Viral intestinal infection, unspecified; E86.0 Dehydration; E86.9 Volume depletion, unspecified; R74.01 Elevation of levels of liver transaminase levels; E87.6 Hypokalemia; Z83.3 Family history of diabetes mellitus; Z79.4 Long term (current) use of insulin
CPT/HCPCS: 36415; 71045; 80048; 80053; 82962; 85025; 96361; 96372; 96374; G0378; J1815; J2405